=== PATIENT | female | born 1955 | race American Indian/Alaskan Native ===

== ENCOUNTER 2021-03-21 18:55 | Inpatient (IN) | payer MEDICARE ==
[2021-03-21] MEDS ORDERED: ADENOSINE 6 MG/2 ML INJ ONE (19:14)
--- NOTE | 2021-03-21 19:50 | XRay Report ---
CHEST 1 VIEW 03/21/2021 6:42 PM INDICATION / CLINICAL INFORMATION: palpitations. COMPARISON: None available. FINDINGS: SUPPORT DEVICES: None. HEART / MEDIASTINUM: No significant abnormality. LUNGS / PLEURA: No significant pulmonary or pleural abnormality. No pneumothorax. Accessory azygos fi ssure is noted. ADDITIONAL FINDINGS: No significant additional findings. IMPRESSION: 1. No acute findings. Signer Name: Sabino Johnson MD Signed: 03/21/2021 7:45 PM Workstation Name: [id number]
[2021-03-21 20:31] LABS: Basophils % (Auto) 0.3 % (0.0-1.8); Eosinophils # (Auto) 0.1 K/mm3 (0.0-0.4); Eosinophils % (Auto) 1.2 % (0.0-4.3); Hematocrit 29.5 % (30.3-42.9); Hemoglobin 9.1 gm/dl (10.1-14.3); Lymphocytes # (Auto) 0.8 K/mm3 (1.2-5.4); Lymphocytes % (Auto) 19.3 % (13.4-35.0); Mean Corpuscular HGB Conc 31 % (30-34); Mean Corpuscular Volume 76 fl (79-97); Monocytes # (Auto) 0.4 K/mm3 (0.0-0.8); Monocytes % (Auto) 10.3 % (0.0-7.3); Platelet Count 329 K/mm3 (140-440); Red Blood Count 3.88 M/mm3 (3.65-5.03)
[2021-03-21 20:40] LABS: INR 1.08 (0.87-1.13)
[2021-03-21 20:41] LABS: Partial Thromboplastin Time 34.8 Sec. (24.2-36.6)
[2021-03-21] MEDS ORDERED: SODIUM CHLORIDE 0.9% 500 ML 500 ML IV ONE (21:00)
[2021-03-21] MEDS ORDERED: dilTIAZem 25 MG/5 ML INJ IV ONE (21:00)
[2021-03-21] MEDS ORDERED: dilTIAZem/D5W 100 MG/100 ML BAG IV SCH (21:00)
[2021-03-21 21:01] LABS: Amphetamine Screen,Urine Negative; Benzodiazepines Screen,Urine Negative; Cannabinoid Screen,Urine Negative; Cocaine Screen,Urine Negative; Methadone Screen,Urine Negative; Opiate Screen,Urine Negative
[2021-03-21 21:29] LABS: Chol/HDL Ratio 2.35 %
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
[2021-03-22] MEDS ORDERED: ONDANSETRON 4 MG/2 ML INJ IV PRN (01:03)
[2021-03-22] MEDS ORDERED: ACETAMINOPHEN 325 MG TAB PO PRN ×2 (01:03→01:06)
[2021-03-22] MEDS ORDERED: DEXTROSE 50% IN WATER (25GM) 50 ML SYRINGE IV PRN (01:03)
[2021-03-22] MEDS ORDERED: MORPHINE 2 MG/1 ML INJ IV PRN (01:03)
[2021-03-22] MEDS ORDERED: ALBUTEROL 2.5 MG/3 ML NEBU IH PRN (01:03)
[2021-03-22] MEDS ORDERED: HYDROmorphone 1 MG/1 ML INJ IV PRN (01:03)
[2021-03-22] MEDS ORDERED: traMADol 50 MG TAB PO PRN (01:06)
[2021-03-22] MEDS ORDERED: NITROGLYCERIN 0.4 MG TAB SUBL SL PRN (01:06)
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
[2021-03-22] MEDS ORDERED: hydrALAZINE 20 MG/1 ML INJ IV PRN (01:17)
[2021-03-22] MEDS ORDERED: dilTIAZem 25 MG/5 ML INJ IV PRN (01:18)
[2021-03-22 05:21] LABS: Basophils # (Auto) 0.1 K/mm3 (0.0-0.1); Basophils % (Auto) 1.5 % (0.0-1.8); Eosinophils # (Auto) 0.1 K/mm3 (0.0-0.4); Eosinophils % (Auto) 1.4 % (0.0-4.3); Hematocrit 28.4 % (30.3-42.9); Hemoglobin 8.8 gm/dl (10.1-14.3); Lymphocytes # (Auto) 0.8 K/mm3 (1.2-5.4); Lymphocytes % (Auto) 21.3 % (13.4-35.0); Mean Corpuscular HGB Conc 31 % (30-34); Mean Corpuscular Volume 76 fl (79-97); Monocytes # (Auto) 0.5 K/mm3 (0.0-0.8); Monocytes % (Auto) 13.8 % (0.0-7.3); Platelet Count 321 K/mm3 (140-440); Red Blood Count 3.74 M/mm3 (3.65-5.03); Red Cell Distribution Width 17.3 % (13.2-15.2)
[2021-03-22 05:44] LABS: Calcium 8.8 mg/dL (8.4-10.2)
[2021-03-22] MEDS ORDERED: HEPARIN 5,000 UNIT/1 ML VIAL SUB-Q SCH (06:00)
[2021-03-22] MEDS ORDERED: REGADENOSON 0.4 MG/5 ML INJ IV ONE (07:03)
[2021-03-22] MEDS: INSULIN LISPRO 100 UNIT/ML SUB-Q SCH ×3 (07:45→22:08)
--- NOTE | 2021-03-22 09:00 | Electrocardiograph Report ---
[facility] Test Date: 2021-03-21 Test Time: 18:53:33 Pat Name: ZENA RUFFIN Department: Room: [place] [address] Gender: F Manager Technical Support: FIDEL : 1955 Requested By: ROMMEL RICHARD Order Number: [id number] Reading MD: Sukhdev Lr Measurements Intervals [place] Rate: 159 P: MT: QRS: -7 QRSD: 95 T: 180 QT: 304 QTc: 495 Interpretive Statements Atrial fibrillation with rapid V-rate Repolarization abnormality, prob rate related No previous ECG available for comparison Electronically Signed On 03-22-2021 8:59:50 EST by Sukhdev Lr
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
[2021-03-22] MEDS: FAMOTIDINE 20 MG TAB PO SCH (09:45)
[2021-03-22] MEDS ORDERED: dilTIAZem CD 300 MG CAP PO SCH (11:00)
--- NOTE | 2021-03-22 12:33 | Consultation ---
History of Present Illness Consult date: 03/22/21 Requesting physician: AIDA SUN Consult reason: atrial fibrillation History of present illness: Patient is 66-year-old female with a past medical history of paroxysmal A. fib, hypertension, CKD, hyperlipidemia, diabetes, and anemia who presented to the ED due to palpitations and elevated heart rate. Patient reports that about an hour before contacted EMS she started having her palpitations and states her heart rate was in the 200s. Patient was then transported to [facility].Prior to arrival the patient received adenosine x2 and was shocked that 85 J after receiving some Versed. On arrival to the ED patient was in SVT and given adenosine and started on Cardizem drip. Patient converted back to sinus rhythm. Patient was previously on flecainide but recently stopped in January by her dental technologist due to her kidney function. Time of interview patient denies chest pains, palpitations, nausea, vomiting, or shortness of breath. Patient is previously unknown to our practice but patient follows cardiologists is at [facility] Cardiology is consulted for A. fib with RVR Past History Past Medical History: atrial fib, diabetes, hypertension, renal failure, other (SVT) Past Surgical History: No surgical history Social history: no significant social history Family history: no significant family history Medications and Allergies Allergies Allergy/AdvReac Type Severity Reaction Status Date / Time Fish Containing Products Allergy hives and Verified 03/22/21 09:38 swelling Penicillins Allergy Hives and Verified 03/22/21 09:38 swelling Sulfa (Sulfonamide Allergy Hives and Verified 03/22/21 09:38 Antibiotics) swelling Home Medications Medication Instructions Recorded Confirmed Last Taken Type Apixaban [Eliquis] 5 mg PO BID 03/22/21 03/22/21 03/21/21 08:00 History Ferrous Sulfate [Feosol 325 MG tab] 1 tab PO QAM 03/22/21 03/22/21 03/21/21 08:00 History Insulin Glargine,Hum.rec.anlog 5 unit SQ HS 03/22/21 03/22/21 03/20/21 20:00 History [Lantus Solostar] Isosorbide Mononitrate [Isosorbide 60 mg PO DAILY 0103/22/21 03/21/21 08:00 History Mononitrate ER] dilTIAZem CD [Cardizem Cd] 240 mg PO QDAY 03/22/21 03/22/21 03/21/21 08:00 History hydrALAZINE [Apresoline TAB] 100 mg PO TID 03/22/21 03/22/21 03/21/21 14:00 History Active Meds: Active Medications Acetaminophen (Acetaminophen 325 Mg Tab) 650 mg PO Q4H PRN PRN Reason: Pain MILD(1-3)/Fever >100.5/CANALES Albuterol (Albuterol 2.5 Mg/3 Ml Nebu) 2.5 mg IH Q4HRT PRN PRN Reason: Shortness Of Breath Albuterol/Ipratropium (Ipratropium/Albuterol Sulfate 3 Ml Ampul.Neb) 1 ampul IH Q6HRT [place] Apixaban (Apixaban 5 Mg Tab) 5 mg PO Q12HR [facility]; Protocol Atorvastatin Calcium (Atorvastatin 40 Mg Tab) 40 mg PO QHS [facility] Dextrose (Dextrose 50% In Water (25gm) 50 Ml Syringe) 0 ml IV Q30MIN PRN; Protocol PRN Reason: Hypoglycemia Diltiazem HCl (Diltiazem Cd 180 Mg Cap) 360 mg PO QDAY [facility] Famotidine (Famotidine 20 Mg Tab) 20 mg PO QAM [facility] Last Admin: 03/22/21 09:45 Dose: Not Given Hydralazine HCl (Hydralazine 20 Mg/1 Ml Inj) 10 mg IV Q6H PRN PRN Reason: Blood Pressure Hydralazine HCl (Hydralazine 100 Mg Tab) 100 mg PO TID [facility] Hydromorphone HCl (Hydromorphone 1 Mg/1 Ml Inj) 0.5 mg IV Q3H PRN PRN Reason: Pain , Severe (7-10) Insulin Human Lispro (Insulin Lispro 100 Unit/Ml) 0 unit SUB-Q ACHS [facility]; Protocol Last Admin: 03/22/21 07:45 Dose: Not Given Isosorbide Mononitrate (Isosorbide Mononitrate Er 30 Mg Tab) 60 mg PO QDAY [facility] Morphine Sulfate (Morphine 2 Mg/1 Ml Inj) 2 mg IV Q4H PRN PRN Reason: Pain, Moderate (4-6) Nitroglycerin (Nitroglycerin 0.4 Mg Tab Subl) 0.4 mg SL Q5M PRN PRN Reason: Chest Pain Ondansetron HCl (Ondansetron 4 Mg/2 Ml Inj) 4 mg IV Q8H PRN PRN Reason: Nausea And Vomiting Sodium Chloride (Sodium Chloride 0.9% 10 Ml Flush Syringe) 10 ml IV BID [place] Sodium Chloride (Sodium Chloride 0.9% 10 Ml Flush Syringe) 10 ml IV PRN PRN PRN Reason: LINE FLUSH Tramadol HCl (Tramadol 50 Mg Tab) 50 mg PO Q6H PRN PRN Reason: Pain, Moderate (4-6) Review of Systems Constitutional: no weight loss, no weight gain, no fever, no chills Ears, nose, mouth and throat: no nasal congestion, no nasal discharge, no sinus pressure, no sinus pain Cardiovascular: palpitations, rapid/irregular heart beat, no chest pain, no orthopnea, no shortness of breath, no dyspnea on exertion Respiratory: no cough with sputum, no excessive sputum, no shortness of breath, no dyspnea on exertion Gastrointestinal: no abdominal pain, no nausea, no vomiting, no diarrhea Musculoskeletal: no neck stiffness, no neck pain, no shooting arm pain Integumentary: no rash, no pruritis, no redness Neurological: no head injury, no transient paralysis Psychiatric: no anxiety, no memory loss Endocrine: no cold intolerance, no heat intolerance Hematologic/Lymphatic: no easy bruising, no easy bleeding Physical Examination Vital Signs Pulse Resp BP Pulse Ox 88 19 118/85 98 03/21/21 20:14 03/21/21 20:14 03/21/21 20:14 03/21/21 20:14 General appearance: no acute distress HEENT: Positive: PERRL Cardiac: Positive: Reg Rate and Rhythm, irregularly irregular Lungs: Positive: Normal Breath Sounds Neuro: Positive: Grossly Intact Abdomen: Positive: Soft, Active Bowel Sounds Skin: Negative: Rash, Suspicious Lesions Extremities: Present: upper extr. pulses. Absent: edema Results 03/22/21 04:07 03/22/21 04:07 Coagulation 03/21/21 Range/Units 19:46 PT 15.2 H (12.2-14.9) Sec. INR 1.08 (0.87-1.13) APTT 34.8 (24.2-36.6) Sec. Lipids 03/21/21 Range/Units 19:46 Triglycerides 201 H (2-149) mg/dL Cholesterol 198 (50-199) mg/dL HDL Cholesterol 84 H (40-59) mg/dL Cholesterol/HDL Ratio 2.35 % CBC 03/21/21 03/22/21 Range/Units 19:46 04:07 WBC 4.3 L 3.7 L (4.5-11.0) K/mm3 RBC 3.88 3.74 (3.65-5.03) M/mm3 Hgb 9.1 L 8.8 L (10.1-14.3) gm/dl Hct 29.5 L 28.4 L (30.3-42.9) % Plt Count 329 321 (140-440) K/mm3 Lymph # (Auto) 0.8 L 0.8 L (1.2-5.4) K/mm3 [place] # (Auto) 0.4 0.5 (0.0-0.8) K/mm3 Eos # (Auto) 0.1 0.1 (0.0-0.4) K/mm3 Baso # (Auto) 0.0 0.1 (0.0-0.1) K/mm3 Comprehensive Metabolic Panel 03/21/21 03/22/21 Range/Units 19:46 04:07 Sodium 137 143 (137-145) mmol/L Potassium 3.5 L 3.9 (3.6-5.0) mmol/L Chloride 100.1 106.2 (98-107) mmol/L Carbon Dioxide 22 23 (22-30) mmol/L BUN 28 H 26 H (7-17) mg/dL Creatinine 2.6 H 2.6 H (0.6-1.2) mg/dL Glucose 208 H 98 (65-100) mg/dL Calcium 9.0 8.8 (8.4-10.2) mg/dL - Imaging and Cardiology Echo: report reviewed EKG: report reviewed, image reviewed EKG interpretations - Telemetry EKG Rhythm: Atrial Fibrillation Assessment and Plan Patient is 66-year-old female with a past medical history of paroxysmal A. fib, hypertension, CKD, hyperlipidemia, diabetes, and anemia who presented to the ED due to palpitations and elevated heart rate. Afib w/ RVR Type 2 [place] HTN CKD HLD Anemia DM Echo 01/25/2021-normal LV dimensions. LV wall mass/thickness are grossly normal. LV systolic function is normal with an estimated LVEF of 55-60%. No regional wall motion abnormalities. LV diastolic function is indeterminate given MAC. No LV clot. Sigmoid septum. Normal RV dimensions. RV systolic function appears grossly normal. LA appears normal in volume. RA appears normal in volume. No PFO. Aortic valve with moderately thickened and calcified leaflets. No aortic stenosis. Trace aortic regurgitation. Mitral valve with MAC present. No mitral stenosis. No mitral regurgitation. Normal tricuspid valve morphology. Trace tricuspid regurgitation. Pulmonic valve not well seen. Trace pulmonic regurgitation. PA systolic pressure could not be estimated in the setting of incomplete TR Doppler envelope. IVC is normal No pericardial effusion. Normal aortic root dimension Lexiscan MPI stress test 06/18/2020-normal rest/stress SPECT myocardial perfusion images. There is no evidence of significant infarction or ischemia. There are no wall motion abnormalities. Left ventricular function is normal. The ejection fraction is 75%. CO in post stress resting state is 4.01 L/min RegadenosonStress/ECG changes are normal. HR response to regadenosan suggests good vasodilatory response. This study suggests a low risk for cardiovascular event and is associated with a cardiac mortality of less than 1% per year. There is no prior study for comparison. Breast attenuation limits the study Outpatient medications: Eliquis, Cardizem CD 240 mg p.o. daily, hydralazine 100 mg p.o. 3 times daily, Imdur 60 mg daily, and rosuvastatin 5 mg p.o. nightly Plan: EKG shows A. fib with RVR rate 159 repolarization abnormality probably rate related. No acute ischemic changes. Patient currently chest pain-free Troponins minimally elevated0.03->0.05->0.05, likely elevated in setting of A. fib with RVR Resume outpatient medication :Eliquis, Lipitor 40 mg p.o. nightly, daily hydralazine 100 mg p.o. 3 times daily Imdur 60 mg p.o. daily Mag and TSH pending Increased to diltiazem CD 360 mg p.o. Patient seen in conjunction with Dr. Lr who agrees with this plan of care - Patient Problems (1) Anemia Current Visit: Yes Status: Acute (2) Acute kidney injury superimposed on CKD Current Visit: Yes Status: Acute (3) Atrial fibrillation with RVR Current Visit: Yes Status: Acute (4) Diabetes Current Visit: Yes Status: Acute (5) Hypertension Current Visit: Yes Status: Acute
[2021-03-22] MEDS: dilTIAZem CD 180 MG CAP PO SCH (13:30)
[2021-03-22] MEDS: APIXABAN 5 MG TAB PO SCH ×2 (13:30→22:08)
[2021-03-22 13:44] LABS: Hematocrit 30.7 % (30.3-42.9); Hemoglobin 9.3 gm/dl (10.1-14.3); Mean Corpuscular HGB Conc 30 % (30-34); Mean Corpuscular Volume 77 fl (79-97); Platelet Count 350 K/mm3 (140-440); Red Blood Count 3.97 M/mm3 (3.65-5.03); Red Cell Distribution Width 16.8 % (13.2-15.2)
[2021-03-22 13:54] LABS: INR 1.17 (0.87-1.13)
[2021-03-22 13:56] LABS: Partial Thromboplastin Time 52.9 Sec. (24.2-36.6)
[2021-03-22] MEDS: hydrALAZINE 100 MG TAB PO SCH ×2 (14:42→22:08)
--- NOTE | 2021-03-22 17:36 | Event Note ---
Date: 03/22/21 The patient was seen/evaluated today, and she was found to be hemodynamically stable. The patient was evaluated by cardiology for SVT, and she was evaluated by nephrology for ALEKSANDR. The patient has been cleared from a cardiac standpoint. The patient will remain for further work-up/management of her ALEKSANDR.
[2021-03-22] MEDS: IPRATROPIUM/ALBUTEROL SULFATE 3 ML AMPUL.NEB IH SCH (22:29)
[2021-03-23] MEDS: IPRATROPIUM/ALBUTEROL SULFATE 3 ML AMPUL.NEB IH SCH ×2 (01:44→04:17)
[2021-03-23 06:14] LABS: Basophils % (Auto) 1.1 % (0.0-1.8); Eosinophils # (Auto) 0.1 K/mm3 (0.0-0.4); Eosinophils % (Auto) 2.1 % (0.0-4.3); Hematocrit 29.6 % (30.3-42.9); Hemoglobin 9.2 gm/dl (10.1-14.3); Lymphocytes # (Auto) 1.1 K/mm3 (1.2-5.4); Lymphocytes % (Auto) 29.2 % (13.4-35.0); Mean Corpuscular HGB Conc 31 % (30-34); Mean Corpuscular Volume 75 fl (79-97); Monocytes # (Auto) 0.5 K/mm3 (0.0-0.8); Monocytes % (Auto) 12.6 % (0.0-7.3); Platelet Count 362 K/mm3 (140-440); Red Blood Count 3.95 M/mm3 (3.65-5.03); Red Cell Distribution Width 16.9 % (13.2-15.2)
[2021-03-23 06:32] LABS: Calcium 8.6 mg/dL (8.4-10.2)
[2021-03-23 08:38] VITALS: BP 167/85
--- NOTE | 2021-03-23 08:54 | Electrocardiograph Report ---
[facility] Test Date: 2021-03-23 Test Time: 07:52:22 Pat Name: ZENA RUFFIN Department: Room: A454 1 Gender: F Lead Qa Analyst: TED : 1955 Requested By: AIDA SUN Order Number: [id number] Reading MD: Sukhdev Lr Measurements Intervals [place] Rate: 66 P: -2 CA: 265 QRS: -21 QRSD: 99 T: 123 QT: 446 QTc: 466 Interpretive Statements Sinus rhythm Prolonged CA interval nonspecific st-t Compared to ECG 03/21/2021 18:53:33 First degree AV block now present T-wave abnormality now present Possible ischemia now present Atrial fibrillation no longer present Early repolarization no longer present Electronically Signed On 03-23-2021 8:54:06 EST by Sukhdev Lr
[2021-03-23] MEDS: INSULIN LISPRO 100 UNIT/ML SUB-Q SCH ×2 (09:36→12:20)
[2021-03-23] MEDS: APIXABAN 5 MG TAB PO SCH (09:38)
[2021-03-23] MEDS: FAMOTIDINE 20 MG TAB PO SCH (09:38)
[2021-03-23] MEDS: dilTIAZem CD 180 MG CAP PO SCH (09:38)
[2021-03-23] MEDS: hydrALAZINE 100 MG TAB PO SCH ×2 (09:38→14:23)
[2021-03-23] MEDS ORDERED: ASPIRIN EC 325 MG TAB PO SCH (10:00)
--- NOTE | 2021-03-23 11:09 | Discharge Summary ---
Providers - Providers Date of Admission: 03/22/21 01:03 Date of discharge: 03/23/21 Attending physician: DARREL GARCIA MD 03/22/21 Consult to Cardiac Rehabilitation [CONS] Routine Reason For Exam: Phase I 03/22/21 01:03 Consult to Dietitian/Nutrition [CONS] Routine Physician Instructions: Reason For Exam: Reason for Consult: Diet education Consult to Physician [CONS] Routine Comment: Consulting Provider: JOHNSON SANDERS Physician Instructions: Reason For Exam: a.fib 03/22/21 01:17 Consult to Physician [CONS] Routine Comment: Consulting Provider: SHIRIN DOMINGUEZ Physician Instructions: Reason For Exam: arelis Primary care physician: BILLBOARD INSTALLER Hospitalization Reason for admission: Atrial fibrillation with RVR Condition: Stable Pertinent studies: Reviewed. Procedures: None. Hospital course: The patient is a 66-year-old female past medical history of hypertension, hyperlipidemia, atrial fibrillation with RVR, insulin-dependent type 2 diabetes mellitus, supraventricular tachycardia, anemia, and CKD stage III/IV who presented with heart palpitations and tachycardia ranging in the 200s. The patient was found to be in supraventricular tachycardia upon presentation. The patient had admitted to having a "cardiac medication" discontinued due to its effects on her renal function. The patient was given adenosine and shocked with resolution of symptoms. Cardiology was consulted. It was later determined that the patient was previously on flecainide that was stopped due to worsening renal function. Due to the patient having a stress test in 05/2020 (unremarkable) and a TTE in 12/2020 (unremarkable), the decision was made to increase diltiazem to 360 mg daily. The patient has tolerated the medication adjustment well. The patient will follow up with her outpatient front end developer designer at [facility]. The patient expresses understanding. The patient is medically cleared for discharge. Disposition: HOME / SELF CARE / HOMELESS Final Discharge Diagnosis (Prints w/discharge instructions): Atrial fibrillation with RVR, NSTEMI type II, hypertension, hyperlipidemia, insulin-dependent type 2 diabetes mellitus, anemia, CKD stage IV Time spent for discharge: 45 min Core Measure Documentation - Palliative Care Palliative Care/ Comfort Measures: Not Applicable - Core Measures Any of the following diagnoses?: none Exam - Constitutional Vitals: Temp Pulse Resp BP Pulse Ox 97.6 F 69 18 167/85 96 03/23/21 08:34 03/23/21 08:34 03/23/21 08:34 03/23/21 08:34 03/23/21 10:00 General appearance: Present: no acute distress, well-nourished - EENT Eyes: Present: PERRL, EOM intact ENT: hearing intact, clear oral mucosa, dentition normal - Neck Neck: Present: supple, normal ROM - Respiratory Respiratory effort: normal Respiratory: bilateral: CTA - Cardiovascular Rhythm: regular Heart Sounds: Present: S1 & S2 - Extremities Extremities: no ischemia, pulses intact, pulses symmetrical, No edema, normal temperature, normal color, Full ROM Peripheral Pulses: within normal limits - Abdominal General gastrointestinal: Present: soft, non-tender, non-distended, normal bowel sounds Female genitourinary: Present: deferred - Rectal Rectal Exam: deferred - Integumentary Integumentary: Present: clear, warm, dry - Musculoskeletal Musculoskeletal: strength equal bilaterally - Psychiatric Psychiatric: appropriate mood/affect, memory intact, cooperative - Neurologic Neurologic: CNII-XII intact, moves all extremities - Allied Health Allied health notes reviewed: nursing Plan Activity: no restrictions Diet: diabetic Additional Instructions: The patient is a 66-year-old female past medical history of hypertension, hyperlipidemia, atrial fibrillation with RVR, insulin- dependent type 2 diabetes mellitus, supraventricular tachycardia, anemia, and CKD stage III/IV who presented with heart palpitations and tachycardia ranging in the 200s. The patient was found to be in supraventricular tachycardia upon presentation. The patient had admitted to having a "cardiac medication" discontinued due to its effects on her renal function. The patient was given adenosine and shocked with resolution of symptoms. Cardiology was consulted. It was later determined that the patient was previously on flecainide that was stopped due to worsening renal function. Due to the patient having a stress test in 05/2020 (unremarkable) and a TTE in 12/2020 (unremarkable), the decision was made to increase diltiazem to 360 mg daily. The patient has tolerated the medication adjustment well. The patient will follow up with her outpatient front end developer designer at [facility]. The patient expresses understanding. The patient is medically cleared for discharge. Care Plan Goals: Patient is medically cleared for discharge. Assessment: The patient is a 66-year-old female past medical history of hypertension, hyperlipidemia, atrial fibrillation with RVR, insulin-dependent type 2 diabetes mellitus, supraventricular tachycardia, anemia, and CKD stage III/IV who presented with heart palpitations and tachycardia ranging in the 200s. The patient was found to be in supraventricular tachycardia upon presentation. The patient had admitted to having a "cardiac medication" discontinued due to its effects on her renal function. The patient was given adenosine and shocked with resolution of symptoms. Cardiology was consulted. It was later determined that the patient was previously on flecainide that was stopped due to worsening renal function. Due to the patient having a stress test in 05/2020 (unremarkable) and a TTE in 12/2020 (unremarkable), the decision was made to increase diltiazem to 360 mg daily. The patient has tolerated the medication adjustment well. The patient will follow up with her outpatient front end developer designer at [facility]. The patient expresses understanding. The patient is medically cleared for discharge. Follow up with: PRIMARY CARE, [Primary Care Provider] - 7 Days Forms: Work/School Release Form Prescriptions: AtorvaSTATin [Lipitor] 40 mg PO QHS #30 tablet dilTIAZem CD [Cardizem CD] 360 mg PO QDAY #60 capsule
--- NOTE | 2021-03-23 11:37 | Progress Note ---
Assessment and Plan Patient is 66-year-old female with a past medical history of paroxysmal A. fib, hypertension, CKD, hyperlipidemia, diabetes, and anemia who presented to the ED due to palpitations and elevated heart rate. Afib w/ RVR Type 2 [place] HTN CKD HLD Anemia DM Echo 01/25/2021-normal LV dimensions. LV wall mass/thickness are grossly normal. LV systolic function is normal with an estimated LVEF of 55-60%. No regional wall motion abnormalities. LV diastolic function is indeterminate given MAC. No LV clot. Sigmoid septum. Normal RV dimensions. RV systolic function appears grossly normal. LA appears normal in volume. RA appears normal in volume. No PFO. Aortic valve with moderately thickened and calcified leaflets. No aortic stenosis. Trace aortic regurgitation. Mitral valve with MAC present. No mitral stenosis. No mitral regurgitation. Normal tricuspid valve morphology. Trace tricuspid regurgitation. Pulmonic valve not well seen. Trace pulmonic regurgitation. PA systolic pressure could not be estimated in the setting of incomplete TR Doppler envelope. IVC is normal No pericardial effusio n. Normal aortic root dimension Lexiscan MPI stress test 06/18/2020-normal rest/stress SPECT myocardial perfusion images. There is no evidence of significant infarction or ischemia. There are no wall motion abnormalities. Left ventricular function is normal. The ejection fraction is 75%. CO in post stress resting state is 4.01 L/min RegadenosonStress/ECG changes are normal. HR response to regadenosan suggests good vasodilatory response. This study suggests a low risk for cardiovascular event and is associated with a cardiac mortality of less than 1% per year. There is no prior study for comparison. Breast attenuation limits the study Outpatient medications: Eliquis, Cardizem CD 240 mg p.o. daily, hydralazine 100 mg p.o. 3 times daily, Imdur 60 mg daily, and rosuvastatin 5 mg p.o. nightly Plan: Patient sinus 80s on monitors with no events patient denies any chest pain Continue outpatient medication :Eliquis, Lipitor 40 mg p.o. nightly, daily hydralazine 100 mg p.o. 3 times daily Imdur 60 mg p.o. daily Continue diltiazem CD 360 mg p.o. daily Patient cardiac status is stable for discharge Patient should follow-up with her primary box gluer in 1 to 2 weeks after discharge Patient seen in conjunction with Dr. Lr who agrees with this plan of care - Patient Problems (1) Anemia Current Visit: Yes Status: Acute (2) Acute kidney injury superimposed on CKD Current Visit: Yes Status: Acute (3) Atrial fibrillation with RVR Current Visit: Yes Status: Acute (4) Diabetes Current Visit: Yes Status: Acute (5) Hypertension Current Visit: Yes Status: Acute Subjective Date of service: 03/23/21 Principal diagnosis: A. fib with RVR Interval history: Patient resting in bed comfortably in no acute distress. Patient reports feeling well Patient currently sinus 80s on monitor with no events Objective Vital Signs Temp Pulse Resp BP BP Pulse Ox 03/23/21 10:00 96 03/23/21 08:34 97.6 F 69 18 167/85 97 03/23/21 08:23 98 03/23/21 06:01 97.5 F L 72 18 145/82 97 03/23/21 05:21 142/83 03/23/21 03:36 100 03/23/21 01:29 140/76 100 03/23/21 00:21 97.0 F L 76 18 144/77 96 03/22/21 22:44 100 03/22/21 22:30 100 03/22/21 22:22 71 03/22/21 21:59 97.7 F 71 17 151/94 100 03/22/21 21:03 151/94 03/22/21 20:40 68 15 140/76 94 03/22/21 20:31 69 14 140/76 95 03/22/21 20:30 69 15 140/76 95 03/22/21 20:21 69 16 140/76 95 03/22/21 20:20 69 13 140/76 95 03/22/21 20:11 68 14 140/76 97 03/22/21 20:10 69 14 140/76 95 03/22/21 20:01 68 14 140/76 94 03/22/21 20:00 73 19 119/61 93 03/22/21 19:51 70 14 119/61 93 03/22/21 19:50 70 16 119/61 92 03/22/21 19:41 71 16 119/61 93 03/22/21 19:40 69 13 119/61 95 03/22/21 19:31 73 16 119/61 97 03/22/21 19:30 70 16 119/61 95 03/22/21 19:21 71 16 119/61 94 03/22/21 19:20 70 17 119/61 95 03/22/21 19:16 70 16 95 03/22/21 19:11 68 15 119/61 95 03/22/21 19:01 70 15 119/61 95 03/22/21 18:51 67 15 155/91 96 03/22/21 18:41 68 18 155/91 96 03/22/21 18:31 66 16 155/91 97 03/22/21 18:21 67 15 155/91 98 03/22/21 18:11 74 18 155/91 97 03/22/21 18:01 77 15 155/91 96 03/22/21 17:51 71 14 150/85 99 03/22/21 17:01 76 15 150/85 99 03/22/21 16:01 76 16 136/74 97 03/22/21 15:01 73 16 166/82 95 03/22/21 14:00 73 15 152/73 98 03/22/21 13:00 67 12 163/84 98 03/22/21 12:00 21 184/82 98 - Physical Examination General: No Apparent Distress HEENT: Positive: PERRL Neck: Positive: neck supple Cardiac: Positive: Reg Rate and Rhythm Lungs: Positive: Normal Breath Sounds Neuro: Positive: Grossly Intact Abdomen: Positive: Soft, Active Bowel Sounds Skin: Negative: Rash, Suspicious Lesions Extremities: Present: upper extr. pulses. Absent: edema - Labs and Meds Coagulation 03/22/21 Range/Units 13:27 PT 16.2 H (12.2-14.9) Sec. INR 1.17 H (0.87-1.13) APTT 52.9 H (24.2-36.6) Sec. CBC 03/22/21 03/23/21 Range/Units 13:27 04:31 WBC 4.4 L 3.7 L (4.5-11.0) K/mm3 RBC 3.97 3.95 (3.65-5.03) M/mm3 Hgb 9.3 L 9.2 L (10.1-14.3) gm/dl Hct 30.7 29.6 L (30.3-42.9) % Plt Count 350 362 (140-440) K/mm3 Lymph # (Auto) 1.1 L (1.2-5.4) K/mm3 [place] # (Auto) 0.5 (0.0-0.8) K/mm3 Eos # (Auto) 0.1 (0.0-0.4) K/mm3 Baso # (Auto) 0.0 (0.0-0.1) K/mm3 Comprehensive Metabolic Panel 03/22/21 03/23/21 Range/Units 13:27 04:31 Sodium 139 (137-145) mmol/L Potassium 3.6 (3.6-5.0) mmol/L Chloride 104.2 (98-107) mmol/L Carbon Dioxide 21 L (22-30) mmol/L BUN 27 H (7-17) mg/dL Creatinine 2.7 H 2.7 H (0.6-1.2) mg/dL Glucose 109 H (65-100) mg/dL Calcium 8.6 (8.4-10.2) mg/dL - Imaging and Cardiology EKG: report reviewed, image reviewed Echo: report reviewed - Telemetry EKG Rhythm: Sinus Rhythm - EKG Sinus rhythms and dysrhythmias: sinus rhythm
--- NOTE | 2021-03-23 12:18 | Progress Note ---
Assessment and Plan Assessment Afib with RVR renal failure, acute vs. chronic DM Hypertension Plan: Renal labs reviewed. Serum creatinine 2.7 today, yesterday's was 2.7, stable Has CKD due to DM and HTN. CXR was clear but elevated BNP, no IVF for now Was on Lasix Ordered Renal US Ordered urine lytes and protein and eosinophils Strict I&O's daily Obtain daily weights Renally dose medication Avoid nephrotoxic agents Plan of care reviewed by Dr. Zamarripa Subjective Date of service: 03/23/21 Principal diagnosis: A. fib with RVR Interval history: Patient seen lying in bed. Reviewed renal labs. Objective - Vital Signs Vital signs: Vital Signs - 12hr 03/23/21 03/23/21 03/23/21 00:21 01:29 03:36 Temperature 97.0 F L Pulse Rate 76 Respiratory 18 Rate Blood Pressure 144/77 140/76 O2 Sat by Pulse 96 100 100 Oximetry 03/23/21 03/23/21 03/23/21 05:21 06:00 06:01 Temperature 97.5 F L Pulse Rate 69 72 Respiratory 18 Rate Blood Pressure 142/83 145/82 O2 Sat by Pulse 97 Oximetry 03/23/21 03/23/21 03/23/21 08:23 08:34 10:00 Temperature 97.6 F Pulse Rate 69 Respiratory 18 Rate Blood Pressure 167/85 O2 Sat by Pulse 98 97 96 Oximetry - General Appearance General appearance: well-developed, appears stated age EENT: ATNC, PERRL, hearing intact, vision intact Neck: no JVD, supple Respiratory: Present: Decreased Breath Sounds Cardiology: S1S2 Gastrointestinal: normoactive bowel sounds Integumentary: warm and dry Neurologic: alert and oriented x3 Musculoskeletal: other (No edema) Psychiatric: cooperative - Lab 03/23/21 04:31 03/23/21 04:31 Most recent lab results Calcium 8.6 mg/dL (8.4-10.2) 03/23/21 04:31 Magnesium 2.00 mg/dL (1.7-2.3) 03/22/21 13:27 Medications & Allergies - Medications Allergies/Adverse Reactions: Allergies Fish Containing Products Allergy (Verified 03/22/21 09:38) hives and swelling Penicillins Allergy (Verified 03/22/21 09:38) Hives and swelling Sulfa (Sulfonamide Antibiotics) Allergy (Verified 03/22/21 09:38) Hives and swelling Home Medications: Home Medications Medication Instructions Recorded Confirmed Last Taken Type Apixaban [Eliquis] 5 mg PO BID 03/22/21 03/22/21 03/21/21 08:00 History Ferrous Sulfate [Feosol 325 MG tab] 1 tab PO QAM 03/22/21 03/22/21 03/21/21 08:00 History Insulin Glargine,Hum.rec.anlog 5 unit SQ HS 03/22/21 03/22/21 03/20/21 20:00 History [Lantus Solostar] Isosorbide Mononitrate [Isosorbide 60 mg PO DAILY 03/22/21 03/22/21 03/21/21 0 8:00 History Mononitrate ER] hydrALAZINE [Apresoline TAB] 100 mg PO TID 03/22/21 03/22/21 03/21/21 14:00 History AtorvaSTATin [Lipitor] 40 mg PO QHS #30 tablet 03/23/21 Unknown Rx dilTIAZem CD [Cardizem CD] 360 mg PO QDAY #60 capsule 03/23/21 Unknown Rx Active Medications: Generic Name Dose Route Start Last Admin Trade Name Freq PRN Reason Stop Dose Admin Acetaminophen 650 mg 03/22/21 01:03 Acetaminophen 325 Mg Tab PO Q4H PRN Pain MILD(1-3)/Fever >100.5/CANALES Albuterol 2.5 mg 03/22/21 01:03 Albuterol 2.5 Mg/3 Ml Nebu IH Q4HRT PRN Shortness Of Breath Apixaban 5 mg 03/22/21 11:00 03/23/21 09:38 Apixaban 5 Mg Tab PO 5 mg Q12HR [place] Administration Protocol Atorvastatin Calcium 40 mg 03/22/21 22:00 03/22/21 22:08 Atorvastatin 40 Mg Tab PO 40 mg QHS [place] Administration Dextrose 0 ml 03/22/21 01:03 Dextrose 50% In Water (25gm) 50 Ml Syringe IV Q30MIN PRN Hypoglycemia Protocol Diltiazem HCl 360 mg 03/22/21 11:00 03/23/21 09:38 Diltiazem Cd 180 Mg Cap PO 360 mg QDAY [place] Administration Famotidine 20 mg 03/22/21 10:00 03/23/21 09:38 Famotidine 20 Mg Tab PO 20 mg QAM [place] Administration Hydralazine HCl 10 mg 03/22/21 01:17 Hydralazine 20 Mg/1 Ml Inj IV Q6H PRN Blood Pressure Hydralazine HCl 100 mg 03/22/21 14:00 03/23/21 09:38 Hydralazine 100 Mg Tab PO 100 mg TID [place] Administration Hydromorphone HCl 0.5 mg 03/22/21 01:03 Hydromorphone 1 Mg/1 Ml Inj IV Q3H PRN Pain , Severe (7-10) Insulin Human Lispro 0 unit 03/22/21 07:30 03/23/21 09:36 Insulin Lispro 100 Unit/Ml SUB-Q Not Given [facility]S [facility] Protocol Isosorbide Mononitrate 60 mg 03/22/21 13:00 03/23/21 09:38 Isosorbide Mononitrate Er 60 Mg Tab PO 60 mg QDAY [facility] Administration Morphine Sulfate 2 mg 03/22/21 01:03 Morphine 2 Mg/1 Ml Inj IV Q4H PRN Pain, Moderate (4-6) Nitroglycerin 0.4 mg 03/22/21 01:06 Nitroglycerin 0.4 Mg Tab Subl SL Q5M PRN Chest Pain Ondansetron HCl 4 mg 03/22/21 01:03 Ondansetron 4 Mg/2 Ml Inj IV Q8H PRN Nausea And Vomiting Sodium Chloride 10 ml 03/22/21 10:00 03/23/21 09:38 Sodium Chloride 0.9% 10 Ml Flush Syringe IV Not Given BID [place] Sodium Chloride 10 ml 03/22/21 01:06 Sodium Chloride 0.9% 10 Ml Flush Syringe IV PRN PRN LINE FLUSH Tramadol HCl 50 mg 03/22/21 01:06 Tramadol 50 Mg Tab PO Q6H PRN Pain, Moderate (4-6)
--- NOTE | 2021-03-23 15:42 | Ultrasound Report ---
ULTRASOUND RENAL INDICATION / CLINICAL INFORMATION: renal failure. COMPARISON: None available. FINDINGS: RIGHT KIDNEY: Length = 10.6 cm. - Echogenicity: Mildly echogenic. - Cortical Thickness: Normal. - Hydronephrosis: None. - Cyst / Mass: None. - Stones: None seen. LEFT KIDNEY: Length = 9.2 cm. - Echogenicity: Mildly echogenic. - Cortical Thickness: Normal. - Hydronephrosis: None. - Cyst / Mass: Small cyst at the lower pole measuring 2.2 x 1.2 x 1.8 cm. - Stones: None seen. URINARY BLADDER: No significant abnormality. FREE FLUID: None. ADDITIONAL FINDINGS: None. IMPRESSION: 1. Mildly echogenic kidneys can be seen with medical renal disease. No hydronephrosis. 2. Small left lower pole cyst. Signer Name: Alen Franco MD Signed: 03/23/2021 3:37 PM Workstation Name: [id number]
== END 2021-03-23 15:45 | disposition home or self-care (01) | DRG 281 ==
LOC: ED 18:55 → 4A 03-22 01:03
PROVIDERS: ADMIT Hospitalist; ATTEND Student in an Organized Health Care Education/Training Program
DX: I48.0 Paroxysmal atrial fibrillation (principal); I21.A1 Myocardial infarction type 2; N17.9 Acute kidney failure, unspecified; N18.4 Chronic kidney disease, stage 4 (severe); I48.91 Unspecified atrial fibrillation; I12.9 Hypertensive chronic kidney disease with stage 1 through stage 4 chronic kidney disease, or unspecified chronic kidney disease; E11.22 Type 2 diabetes mellitus with diabetic chronic kidney disease; D64.9 Anemia, unspecified; Z88.2 Allergy status to sulfonamides; Z91.013 Allergy to seafood; Z88.0 Allergy status to penicillin; E78.5 Hyperlipidemia, unspecified; Z79.4 Long term (current) use of insulin; Z79.899 Other long term (current) drug therapy
CPT/HCPCS: 36415; 71045; 76770; 80048; 80061; 80307; 82565; 82962; 83735; 83880; 84443; 84484; 85025; 85027; 85379; 85610; 85730; 93005; 93010; G0378; J0153; J7040